=== PATIENT | male | born 1935 | race Caucasian/White ===

== ENCOUNTER 2019-11-15 06:46 | Day surgery (SDC) | payer MEDICARE, OTHER ==
[~2019-11-15 06:46] MED LIST: Lactated Ringers 1,000 ML IV SCH; Sodium Chloride 0.9% 10 ML Syringe FLUSH PRN
[2019-11-15] MEDS ORDERED: Propofol 200 MG/20 ML SDV IV ONE (06:47)
[2019-11-15] MEDS ORDERED: Lidocaine 2% 5 ML SDV INJECT ONE (06:47)
--- NOTE | 2019-11-15 09:28 | PCM.OPNOTE ---
- General Post-Op/Procedure Note Date of Surgery/Procedure: 11/15/19 Operative Procedure(s): EGD with biopsy. Colonoscopy with Polypectomy Findings: Diffuse Gastritis with hyperemia of gastric mucosa but without active bleeding White patches on esophageal mucosa - possible sarah esophagitis Moderate sigmoid diverticulosis without active bleeding Sigmoid colon polyp Pre Op Diagnosis: Anemia Post-Op Diagnosis: Gastritis. Colon Polyp. Sigmoid Diverticulosis Anesthesia Technique: [facility] – [place] Primary Surgeon: Ilir Lovett Pathology: Biopsies of Gastric Antrum and esophagus Sigmoid colon polyp EBL in mLs: 3 Complications: None Condition: Good
--- NOTE | 2019-11-15 13:59 | HP ---
ADMISSION DATE: 11/15/2019 HISTORY OF PRESENT ILLNESS: This 84-year-old male was recently identified to have worsening of his chronic anemia with a hemoglobin of less than 9. He also states that he has occasional hematochezia with some blood on the toilet paper. With these findings, the patient was referred for upper and lower endoscopy. He denies symptoms of heartburn or dysphagia. He states that his bowel function has been satisfactory, although he has noticed some episodes recently of increased gas pressure in the lower abdomen. PAST MEDICAL HISTORY: Shows previous surgeries to include cholecystectomy and hernia repair. He also has diagnoses of diabetes, hypertension and takes warfarin. His INR this morning is satisfactory to proceed with surgery. FAMILY HISTORY: Unchanged. SOCIAL HISTORY: Unchanged. SYSTEM REVIEW: The patient says that he has generally been feeling well recently. His appetite has been satisfactory. He has not been experiencing any chest pain, and he has had no respiratory symptoms. PHYSICAL EXAMINATION: VITAL SIGNS: Temperature is 98.5, pulse 79, blood pressure is 153/65. GENERAL: The patient is alert adult elderly male. He is in no acute distress. HEENT: Head is normocephalic. No scleral icterus. HEART: Regular. LUNGS: Clear. ABDOMEN: Soft without distention or mass. EXTREMITIES: Show no edema. IMPRESSION: Anemia. PLAN: EGD and colonoscopy. INFORMED CONSENT: I have discussed the proposed endoscopic procedures with the patient, reviewed with him indications, options, and risks such as but not limited to bleeding and GI injury. He appears to understand and agrees to proceed. /[id number] PAOLA/MERRILL
--- NOTE | 2019-11-15 17:24 | OR ---
DATE OF OPERATION: 11/15/2019 SURGEON: Ilir Lovett MD PREOPERATIVE DIAGNOSES: 1. Anemia. 2. Positive fecal immunochemical test. POSTOPERATIVE DIAGNOSES: 1. Gastritis. 2. Sigmoid colon polyp. 3. Sigmoid diverticulosis. OPERATIONS PERFORMED: 1. Esophagogastroduodenoscopy with biopsy. 2. Colonoscopy with polypectomy. INDICATIONS FOR SURGERY: This 84-year-old male was found to have increasing anemia as well as a positive FIT test. He was referred for diagnostic upper and lower endoscopy. FINDINGS: On upper endoscopy, the patient was noted to have diffuse gastritis with hyperemia of the gastric mucosa. No active bleeding was seen at this time, and no ulcerations were noted. The duodenum and stomach otherwise appeared normal. The patient has multiple white patches scattered on the mucosa throughout the mid and lower esophagus. These are of concern for possible Emilie esophagitis. No other abnormalities were noted on upper endoscopy. On colonoscopy, the patient had a single 8 mm sessile polyp in the sigmoid colon 20 cm from the anal verge. There is also a moderate degree of diverticulosis, but this does not appear acutely inflamed and there is no evidence of bleeding from this region at this time. The remainder of the colon appears normal. Small internal hemorrhoids are noted as well. PROCEDURE IN DETAIL: The patient was taken to the procedure room. He was given intravenous sedation, and with him in the left lateral decubitus position, the Olympus gastroscope was advanced into the mouth and then carefully under direct visualization it was advanced down into the esophagus, stomach, and into the duodenum where examination to the third portion was performed. After carefully examining the duodenum, the scope was withdrawn back into the stomach. Gastritis was seen and random biopsies of the gastric antrum were taken to rule out H. pylori. Retroflexed examination of the fundus was carried out, and the GE junction was carefully examined and the esophagus was examined as the scope was withdrawn. Biopsies of the lining of the lower esophagus were taken to rule out Emilie esophagitis. After the upper endoscopy was completed, the scope was removed and attention was turned to colonoscopy. Digital rectal exam was performed showing no rectal masses. The Olympus colonoscope was inserted into the rectum. Retroflexed examination of the rectal canal was performed. The scope was then carefully advanced under direct visualization through the entire length of the colon until the cecum was reached. Cecal acquisition was confirmed by noting the normal internal cecal anatomy including the appendiceal orifice and ileocecal valve. The light was also noted to transilluminate the abdominal wall in the right lower quadrant. After examining the cecum, the scope was slowly withdrawn sequentially re-examining the colonic segments. In the sigmoid colon, the above-described polyp was identified. This was removed with a cautery snare and retrieved. Careful examination showed no sign of bleeding or any other complication, and after the exam had been completed, the scope was removed and the patient was taken from the procedure room in satisfactory condition. ESTIMATED BLOOD LOSS: 3 mL. COMPLICATIONS: None. PROGNOSIS: Good. /[id number] PAOLA/MODL
== END 2019-11-15 10:25 | disposition home or self-care (01) ==
LOC: FB.SDS 06:46
PROVIDERS: ATTEND Surgery
DX: K29.50 Unspecified chronic gastritis without bleeding (principal); K21.0 Gastro-esophageal reflux disease with esophagitis; D12.5 Benign neoplasm of sigmoid colon; K57.30 Diverticulosis of large intestine without perforation or abscess without bleeding; B96.81 Helicobacter pylori [H. pylori] as the cause of diseases classified elsewhere; K64.8 Other hemorrhoids; D63.1 Anemia in chronic kidney disease; I13.0 Hypertensive heart and chronic kidney disease with heart failure and stage 1 through stage 4 chronic kidney disease, or unspecified chronic kidney disease; I50.9 Heart failure, unspecified; N18.4 Chronic kidney disease, stage 4 (severe); E11.22 Type 2 diabetes mellitus with diabetic chronic kidney disease; E11.51 Type 2 diabetes mellitus with diabetic peripheral angiopathy without gangrene; Z20.828 Contact with and (suspected) exposure to other viral communicable diseases; Z90.49 Acquired absence of other specified parts of digestive tract; Z79.01 Long term (current) use of anticoagulants; Z79.899 Other long term (current) drug therapy
CPT/HCPCS: 00813; 36415; 43239; 45385; 82962; 85610; 88305; 88312; 88342; J2001; J2704; J7120; U0002

== ENCOUNTER 2020-09-25 19:11 | Emergency (ER) | payer MEDICARE, OTHER ==
[2020-09-25] MEDS ORDERED: Sodium Chloride 0.9% 10 ML Syringe FLUSH PRN (19:13)
[2020-09-25] MEDS ORDERED: Metolazone 2.5 MG Tab PO STA (19:50)
[2020-09-25] MEDS ORDERED: Furosemide 40 MG/4 ML VIAL IVPUSH ONE (19:50)
--- NOTE | 2020-09-25 20:19 | EDM.PDOC ---
ED HPI GENERAL MEDICAL PROBLEM - General Chief Complaint: Cardiovascular Problem Stated Complaint: SOB Time Seen by Provider: 09/25/20 19:25 Source of Information: Reports: Patient, Family History Limitations: Reports: No Limitations - History of Present Illness INITIAL COMMENTS - FREE TEXT/NARRATIVE: Patient is an 85 YO WM who presented to the ED because of 1 month history of increasing dyspnea, cough, and lower extremity edema. He attributed it to the Covid vaccine that he got 1 month ago. He also noticed a gradually increasing abdominal size and bloating although he denies having any abdominal pain, nausea, vomiting. There is no fever, chills, and his cough is mostly dry. - Related Data Allergies Allergy/AdvReac Type Severity Reaction Status Date / Time pollen extracts Allergy Other Verified 09/25/20 19:22 Home Meds: Home Meds Aspirin [Low Dose Aspirin EC] 81 mg PO DAILY 11/14/19 [History] Cholecalciferol (Vitamin D3) [Vitamin D3] 2,000 unit PO DAILY 11/14/19 [History] Ferrous Sulfate 325 mg PO BID 11/14/19 [History] Metoprolol Succinate [Toprol XL 50mg] 50 mg PO DAILY 11/14/19 [History] Warfarin [Coumadin] 5 mg PO DAILY 11/14/19 [History] Warfarin [Coumadin] 7.5 mg PO MOWEFR 11/14/19 [History] amLODIPine [Norvasc] 2.5 mg PO DAILY 11/14/19 [History] atorvaSTATin [Lipitor] 40 mg PO DAILY 11/14/19 [History] glipiZIDE [Glucotrol XL] 5 mg PO DAILY 11/14/19 [History] hydrALAZINE [Apresoline] 50 mg PO Q12HR 11/14/19 [History] Past Medical History HEENT History: Reports: Other (See Below) Other HEENT History: states that he has problem in the blood vessel of his left eye. Cardiovascular History: Reports: CAD, High Cholesterol, Hypertension Genitourinary History: Reports: Prostate Disorder, Renal Calculus, Renal Disease Musculoskeletal History: Reports: Arthritis, Osteoarthritis Neurological History: Reports: Other (See Below) Other Neuro History: DDD (DEGENERATIVE DISC DISEASE) Hematologic History: Reports: Anemia, Anticoagulation Therapy - Past Surgical History Cardiovascular Surgical History: Reports: Coronary Artery Bypass, Other (See Below) Other Cardiovascular Surgeries/Procedures: VEIN GRAFTING GI Surgical History: Reports: Cholecystectomy, Hernia, Inguinal Social & Family History - Family History Family Medical History: No Pertinent Family History - Tobacco Use Tobacco Use Status *Q: Never Tobacco User - Caffeine Use Caffeine Use: Reports: Coffee, Soda - Recreational Drug Use Recreational Drug Use: No ED ROS GENERAL - Review of Systems Review Of Systems: See Below Constitutional: Reports: Fatigue HEENT: Reports: No Symptoms Respiratory: Reports: Shortness of Breath, Cough Cardiovascular: Reports: No Symptoms, Edema Endocrine: Reports: No Symptoms GI/Abdominal: Reports: Distension : Reports: No Symptoms Musculoskeletal: Reports: No Symptoms Skin: Reports: No Symptoms Neurological: Reports: No Symptoms Psychiatric: Reports: No Symptoms ED EXAM, GENERAL - Physical Exam Exam: See Below Exam Limited By: No Limitations General Appearance: Alert, No Apparent Distress Eye Exam: Bilateral Eye: PERRL Ears: Normal External Exam, Normal Canal Nose: Normal Inspection, Normal Mucosa, No Blood Throat/Mouth: Normal Inspection, Normal Lips, Normal Teeth Head: Atraumatic, Normocephalic Neck: Normal Inspection, Supple, Non-Tender, Full Range of Motion Respiratory/Chest: No Respiratory Distress, Lungs Clear, Normal Breath Sounds Cardiovascular: Normal Peripheral Pulses, Regular Rate, Rhythm, No Edema, No Gallop GI/Abdominal: Normal Bowel Sounds, Soft, Non-Tender, No Organomegaly Back Exam: Normal Inspection, Full Range of Motion Extremities: Normal Inspection, Normal Range of Motion, Non-Tender, No Pedal Edema, Pedal Edema, Other Neurological: Alert, Oriented, CN II-XII Intact, Normal Cognition, Normal Gait Psychiatric: Normal Affect Skin Exam: Warm #1 Interpretation EKG Date: 09/25/20 Time: 19:13 Rhythm: NSR State Road: Normal P-Wave: Present QRS: LBBB ST-T: Normal QT: Prolonged Comparison: NA - No Prior EKG (NSR LBBB) Course - Vital Signs Text/Narrative:: Lab/EKG/CXR result was discussed with patient and his son Lasix 40 mg IV x1 Zaroxolyn 2.5 mg po x1 Vit K 5 mg IM Code Status: Full Code Case discussed with Dr Huber Last Recorded V/S: Last Vital Signs Temp 37.1 C 09/25/20 21:15 Pulse 77 09/25/20 21:15 Resp 22 H 09/25/20 21:15 BP 146/73 H 09/25/20 21:15 Pulse Ox 96 09/25/20 21:15 - Orders/Labs/Meds Orders: Active Orders 24 hr Category Date Time Status Abdomen Pelvis wo Cont [CT] Stat Exams 09/25/20 20:08 Taken Chest 1V Frontal [CR] Stat Exams 09/25/20 19:13 Taken Saline Lock Insert [OM.PC] Routine Oth 09/25/20 19:13 Ordered EKG 12 Lead [EK] Routine Ther 09/25/20 19:13 Ordered Labs: Laboratory Tests 09/25/20 09/25/20 09/25/20 Range/Units 19:35 19:35 19:35 WBC 6.0 (3.2-10.1) x10-3/uL RBC 2.67 L (3.90-5.90) x10(6)uL Hgb 8.2 L (12.9-17.7) g/dL Hct 25.5 L (38.3-50.1) % MCV 95.3 (80.8-98.7) fL MCH 30.5 (27.0-33.3) pg MCHC 32.0 (28.7-35.3) g/dL RDW 14.5 (12.4-15.0) % Plt Count 218 (117-477) x10(3)uL MPV 7.1 (6.7-11.0) fL Neut % (Auto) 74.2 H (40.3-71.8) % Lymph % (Auto) 8.0 L (15.8-45.3) % Butler % (Auto) 11.8 (5.5-15.2) % Eos % (Auto) 4.6 (0.1-6.8) % Baso % (Auto) 1.4 (0.3-3.8) % Neut # (Auto) 4.4 (1.7-6.9) x10-3/uL Lymph # (Auto) 0.5 (0.5-4.5) x10-3/uL Butler # (Auto) 0.7 (0.0-1.2) x10-3/uL Eos # (Auto) 0.3 (0.0-0.6) x10-3/uL Baso # (Auto) 0.1 (0.0-0.3) x10-3/uL PT 48.2 H* (9.0-11.1) sec INR 4.95 H* (1.00-1.24) Sodium 140 (135-145) mmol/L Potassium 4.4 (3.5-5.3) mmol/L Chloride 105 (100-110) mmol/L Carbon Dioxide 22 (21-32) mmol/L BUN 35 H (7-18) mg/dL Creatinine 2.3 H* (0.70-1.30) mg/dL Est Cr Clr Drug Dosing 26.31 mL/min Estimated GFR (MDRD) 27 L (>60) BUN/Creatinine Ratio 15.2 (9-20) Glucose 118 H (80-116) mg/dL Calcium 8.0 L (8.6-10.2) mg/dL Total Bilirubin 0.4 (0.1-1.3) mg/dL AST 22 (5-25) IU/L ALT 24 (12-36) U/L Alkaline Phosphatase 152 H (56-112) IU/L Troponin I (4.0-60.3) pg/mL NT-Pro-B Natriuret Pep (<=450) pg/mL Total Protein 6.3 (6.0-8.0) g/dL Albumin 2.9 L (3.2-4.6) g/dL Globulin 3.4 g/dL Albumin/Globulin Ratio 0.9 SARS-CoV-2 RNA (NATHANIEL) (NEGATIVE) 09/25/20 09/25/20 Range/Units 19:35 20:00 WBC (3.2-10.1) x10-3/uL RBC (3.90-5.90) x10(6)uL Hgb (12.9-17.7) g/dL Hct (38.3-50.1) % MCV (80.8-98.7) fL MCH (27.0-33.3) pg MCHC (28.7-35.3) g/dL RDW (12.4-15.0) % Plt Count (117-477) x10(3)uL MPV (6.7-11.0) fL Neut % (Auto) (40.3-71.8) % Lymph % (Auto) (15.8-45.3) % Butler % (Auto) (5.5-15.2) % Eos % (Auto) (0.1-6.8) % Baso % (Auto) (0.3-3.8) % Neut # (Auto) (1.7-6.9) x10-3/uL Lymph # (Auto) (0.5-4.5) x10-3/uL Butler # (Auto) (0.0-1.2) x10-3/uL Eos # (Auto) (0.0-0.6) x10-3/uL Baso # (Auto) (0.0-0.3) x10-3/uL PT (9.0-11.1) sec INR (1.00-1.24) Sodium (135-145) mmol/L Potassium (3.5-5.3) mmol/L Chloride (100-110) mmol/L Carbon Dioxide (21-32) mmol/L BUN (7-18) mg/dL Creatinine (0.70-1.30) mg/dL Est Cr Clr Drug Dosing mL/min Estimated GFR (MDRD) (>60) BUN/Creatinine Ratio (9-20) Glucose (80-116) mg/dL Calcium (8.6-10.2) mg/dL Total Bilirubin (0.1-1.3) mg/dL AST (5-25) IU/L ALT (12-36) U/L Alkaline Phosphatase (56-112) IU/L Troponin I 10.5 (4.0-60.3) pg/mL NT-Pro-B Natriuret Pep 3776 H* (<=450) pg/mL Total Protein (6.0-8.0) g/dL Albumin (3.2-4.6) g/dL Globulin g/dL Albumin/Globulin Ratio SARS-CoV-2 RNA (NATHANIEL) Negative (NEGATIVE) Meds: Medications Discontinued Medications Generic Name Dose Route Start Last Admin Trade Name Freq PRN Reason Stop Dose Admin Furosemide 40 mg 09/25/20 19:50 09/25/20 19:56 Furosemide 40 Mg/4 Ml Vial IVPUSH 09/25/20 19:51 40 mg NOW ONE Administration Metolazone 2.5 mg 09/25/20 19:50 09/25/20 19:57 Metolazone 2.5 Mg Tab PO 09/25/20 19:51 2.5 mg NOW STA Administration Phytonadione 5 mg 09/25/20 20:26 09/25/20 20:54 Phytonadione 10 Mg/1 Ml Amp IM 09/25/20 20:56 5 mg NOW ONE Administration Sodium Chloride 10 ml 09/25/20 19:13 09/25/20 19:58 Sodium Chloride 0.9% 10 Ml Syringe FLUSH 10 ml ASDIRECTED PRN Administration Keep Vein Open Departure - Departure Time of Disposition: 21:30 Disposition: DC/Tfer to [facility] 02 Reason for Transfer *Q: Other (CHF) Condition: Good Clinical Impression: New onset of congestive heart failure, CKD (chronic kidney disease), Anemia, Supratherapeutic INR, Ascites Referrals: Parish Potts MD [Primary Care Provider] - Forms: ED Department Discharge Sepsis Event Note (ED) - Evaluation Sepsis Screening Result: No Definite Risk - Focused Exam Vital Signs: Vital Signs Temp Pulse Resp BP Pulse Ox 09/25/20 21:15 37.1 C 77 22 H 146/73 H 96 09/25/20 20:50 79 23 H 145/74 H 96 09/25/20 20:15 74 23 H 142/64 H 97 09/25/20 19:59 37.4 C 09/25/20 19:15 37.1 C 101 H 23 H 161/74 H 96 - My Orders Last 24 Hours: My Active Orders 09/25/20 19:13 Chest 1V Frontal [CR] Stat Saline Lock Insert [OM.PC] Routine EKG 12 Lead [EK] Routine 09/25/20 20:08 Abdomen Pelvis wo Cont [CT] Stat - Assessment/Plan Last 24 Hours: My Active Orders 09/25/20 19:13 Chest 1V Frontal [CR] Stat Saline Lock Insert [OM.PC] Routine EKG 12 Lead [EK] Routine 09/25/20 20:08 Abdomen Pelvis wo Cont [CT] Stat
--- NOTE | 2020-09-26 17:15 | CR ---
INDICATION: Cough, dyspnea. CHEST ONE VIEW: An AP upright portable view of the chest was obtained 09/25/20 - no comparisons. There appears to be some infiltration that has somewhat rounded appearance in the upper middle lung field on the right. There also appears to be some possible infiltration and linear density at the left lower lobe and minimally at the right lung base. Findings may be on the basis of pneumonia, but should be followed to clearing in this patient to exclude neoplasia. Ventricular recorder is noted overlying the left lower lung field. Post median sternotomy changes noted. The heart appears to be within normal limits in size. The aorta is somewhat tortuous. Diaphragm leaves are slightly flattened with mild hyperaeration raising question of COPD. IMPRESSION: 1. Possible areas pneumonia followup to clearing - correlate clinically. 2. Post median sternotomy with recorder noted. 3. Possible COPD - correlate clinically. MTDD
== END 2020-09-25 21:36 ==
LOC: FB.ED 19:11
DX: I13.0 Hypertensive heart and chronic kidney disease with heart failure and stage 1 through stage 4 chronic kidney disease, or unspecified chronic kidney disease (principal); I50.9 Heart failure, unspecified; N18.9 Chronic kidney disease, unspecified; D63.1 Anemia in chronic kidney disease; R79.1 Abnormal coagulation profile; R18.8 Other ascites; I25.10 Atherosclerotic heart disease of native coronary artery without angina pectoris; E78.00 Pure hypercholesterolemia, unspecified; Z20.828 Contact with and (suspected) exposure to other viral communicable diseases; Z91.09 Other allergy status, other than to drugs and biological substances; Z79.82 Long term (current) use of aspirin; Z79.01 Long term (current) use of anticoagulants; Z79.899 Other long term (current) drug therapy
CPT/HCPCS: 36415; 71045; 74176; 80053; 83880; 84484; 85025; 85610; 93005; 96372; 96374; 99285; A9270; J1940; J3430; U0002

== ENCOUNTER 2020-11-18 09:16 | Emergency (ER) | payer MEDICARE, OTHER ==
--- NOTE | 2020-11-18 09:29 | EDM.PDOC ---
ED HPI GENERAL MEDICAL PROBLEM - General Stated Complaint: lab Time Seen by Provider: 11/18/20 09:27 Source of Information: Reports: Patient History Limitations: Reports: No Limitations - History of Present Illness INITIAL COMMENTS - FREE TEXT/NARRATIVE: 85-year-old male with history of chronic kidney disease, congestive heart failure, anemia, atrial fibrillation with chronic anticoagulation with Coumadin and with anasarca including ascites who presents to the emergency department via private vehicle by his son after being directed "to come to the ER for evaluation and blood transfusion" by the clinic provider at Nephrology clinic at [facility]. Apparently the patient's hemoglobin was 6.8. The patient also had an INR of 3.1 and his creatinine was more elevated. The patient reports dyspnea on exertion but no shortness of breath at rest and he "feels okay". He is denying any pain. He rates his pain as a 0/10. He has noticed no blood in his stools. He has had upper cough but the cough is chronic and nonproductive. It seems to be less so than it has been in the past. He has had no fevers or chills. He has been eating and drinking per his norm. He does have ascites and has had paracentesis in the past and apparently is scheduled for a paracentesis on 11/17/2020. His abdominal girth is appearing to get worse. There are no other associated signs or symptoms. There are no other modifying factors. 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.) - Related Data Allergies Allergy/AdvReac Type Severity Reaction Status Date / Time pollen extracts Allergy Other Verified 09/25/20 19:22 Home Meds: Home Meds Aspirin [Low Dose Aspirin EC] 81 mg PO DAILY 11/14/19 [History] Cholecalciferol (Vitamin D3) [Vitamin D3] 2,000 unit PO DAILY 11/14/19 [History] Ferrous Sulfate 325 mg PO TID 11/14/19 [History] Metoprolol Succinate [Toprol XL 50mg] 50 mg PO DAILY 11/14/19 [History] Warfarin [Coumadin] 2.5 mg PO MOWEFR 11/14/19 [History] Warfarin [Coumadin] 5 mg PO DAILY 11/14/19 [History] amLODIPine [Norvasc] 2.5 mg PO DAILY 11/14/19 [History] atorvaSTATin [Lipitor] 40 mg PO DAILY 11/14/19 [History] glipiZIDE [Glucotrol XL] 5 mg PO DAILY 11/14/19 [History] hydrALAZINE [Apresoline] 50 mg PO Q12HR 11/14/19 [History] Benzonatate [Tessalon Perle] 100 mg PO TID PRN 11/18/20 [History] Folic Acid 1 mg PO DAILY 11/18/20 [History] Multivitamin PO DAILY 11/18/20 [History] Torsemide [Demadex] 20 mg PO DAILY 11/18/20 [History] prednisoLONE acetate [Pred Forte 1% Ophth Susp] 1 drop EYELF 11/18/20 [History] Past Medical History HEENT History: Reports: Other (See Below) Other HEENT History: states that he has problem in the blood vessel of his left eye. Cardiovascular History: Reports: Afib, CAD, High Cholesterol, Hypertension Genitourinary History: Reports: Prostate Disorder, Renal Calculus, Renal Disease Musculoskeletal History: Reports: Arthritis, Osteoarthritis Neurological History: Reports: Other (See Below) Other Neuro History: DDD (DEGENERATIVE DISC DISEASE) Endocrine/Metabolic History: Reports: Diabetes, Type II Hematologic History: Reports: Anemia, Anticoagulation Therapy (On Coumadin) - Past Surgical History Cardiovascular Surgical History: Reports: Coronary Artery Bypass, Other (See Below) Other Cardiovascular Surgeries/Procedures: VEIN GRAFTING GI Surgical History: Reports: Cholecystectomy, Colonoscopy, EGD, Hernia, Inguinal Social & Family History - Tobacco Use Tobacco Use Status *Q: Unknown Ever Used Tobacco (Nonsmoker.) - Caffeine Use Caffeine Use: Reports: Coffee, Soda - Alcohol Use Alcohol Use History: No - Living Situation & Occupation Occupation: Retired ED ROS GENERAL - Review of Systems Review Of Systems: See Below Constitutional: Reports: Malaise, Weakness, Fatigue HEENT: Reports: No Symptoms Respiratory: Reports: Cough Cardiovascular: Reports: Dyspnea on Exertion GI/Abdominal: Reports: Distension (With ascites) : Reports: Other (He reports his urine output is less than usual.) Musculoskeletal: Reports: Other (Anasarca.) Skin: Reports: Pallor Neurological: Reports: Weakness (Generalized) Hematologic/Lymphatic: Reports: Easy Bruising (Clinical anticoagulated on Coumadin) Immunologic: Reports: No Symptoms ED EXAM, GENERAL - Physical Exam Exam: See Below Exam Limited By: No Limitations General Appearance: Alert, WD/WN, No Apparent Distress Eye Exam: Bilateral Eye: EOMI, Normal Inspection (Sclera are anicteric) Ears: Normal External Exam, Hearing Grossly Normal Ear Exam: Bilateral Ear: Auricle Normal Nose: Normal Inspection, Normal Mucosa, No Blood Throat/Mouth: Normal Lips, Normal Voice, No Airway Compromise Head: Atraumatic, Normocephalic Neck: Normal Inspection, Supple, Non-Tender, Full Range of Motion Respiratory/Chest: No Respiratory Distress, No Accessory Muscle Use, Crackles, Rales (Bilaterally) Cardiovascular: Normal Peripheral Pulses, Gallop/S3, Irregularly Irregular Peripheral Pulses: 2+: Radial (L), Radial (R), Dorsalis Pedis (L), Dorsalis Pedis (R) GI/Abdominal: Normal Bowel Sounds, Non-Tender, No Mass, Distended, Other (Ascites is present.) Back Exam: Normal Inspection, Full Range of Motion Extremities: Normal Inspection, Normal Range of Motion, Pedal Edema (Marked 2+ edema in both lower extremities, ankles and feet.) Neurological: Alert, Oriented, CN II-XII Intact, Normal Cognition, No Motor/Sensory Deficits Skin Exam: Warm, Dry, Intact, Pallor #1 Interpretation EKG Date: 11/18/20 Time: 10:21 Rhythm: NSR Rate (Beats/Min): 66 Media: LAD-Left Media Deviation (Mild) P-Wave: Present QRS: LBBB ST-T: Normal QT: Prolonged (Prolonged QTc.) Comparison: No Change (No change from an EKG performed on 09/25/2020.) Course - Vital Signs Last Recorded V/S: Last Vital Signs Temp 36.7 C 11/18/20 09:16 Pulse 72 11/18/20 09:16 Resp 18 11/18/20 09:16 BP 138/67 11/18/20 09:16 Pulse Ox 97 11/18/20 09:16 - Orders/Labs/Meds Orders: Active Orders 24 hr Category Date Time Status EKG Documentation Completion [RC] ASDIRECTED Care 11/18/20 09:47 Active Sodium Chloride 0.9% [Saline Flush] Med 11/18/20 09:46 Active 10 ml FLUSH ASDIRECTED PRN Peripheral IV Insertion Adult [OM.PC] Routine Oth 11/18/20 09:46 Ordered EKG 12 Lead [EK] Routine Ther 11/18/20 09:46 Ordered Medication Orders Sodium Chloride (Sodium Chloride 0.9% 10 Ml Syringe) 10 ml FLUSH ASDIRECTED PRN PRN Reason: Keep Vein Open Labs: Laboratory Tests 11/18/20 11/18/20 11/18/20 Range/Units 09:55 09:55 09:55 WBC 4.7 (3.2-10.1) x10-3/uL RBC 2.19 L (3.90-5.90) x10(6)uL Hgb 6.8 L* (12.9-17.7) g/dL Hct 21.3 L* (38.3-50.1) % MCV 97.1 (80.8-98.7) fL MCH 31.0 (27.0-33.3) pg MCHC 32.0 (28.7-35.3) g/dL RDW 16.8 H (12.4-15.0) % Plt Count 198 (117-477) x10(3)uL MPV 6.9 (6.7-11.0) fL Neut % (Auto) 76.0 H (40.3-71.8) % Lymph % (Auto) 6.1 L (15.8-45.3) % [place] % (Auto) 13.5 (5.5-15.2) % Eos % (Auto) 3.4 (0.1-6.8) % Baso % (Auto) 1.0 (0.3-3.8) % Neut # (Auto) 3.6 (1.7-6.9) x10-3/uL Lymph # (Auto) 0.3 L (0.5-4.5) x10-3/uL [place] # (Auto) 0.6 (0.0-1.2) x10-3/uL Eos # (Auto) 0.2 (0.0-0.6) x10-3/uL Baso # (Auto) 0.0 (0.0-0.3) x10-3/uL PT 26.1 H (9.0-11.1) sec INR 2.57 H (1.00-1.24) Sodium 141 (135-145) mmol/L Potassium 3.6 (3.5-5.3) mmol/L Chloride 105 (100-110) mmol/L Carbon Dioxide 24 (21-32) mmol/L BUN 60 H D (7-18) mg/dL Creatinine 3.1 H* (0.70-1.30) mg/dL Est Cr Clr Drug Dosing 19.52 mL/min Estimated GFR (MDRD) 19 L (>60) BUN/Creatinine Ratio 19.4 (9-20) Glucose 165 H (80-116) mg/dL Calcium 7.5 L (8.6-10.2) mg/dL Magnesium 2.0 (1.8-2.5) mg/dL Total Bilirubin 0.3 (0.1-1.3) mg/dL AST 18 D (5-25) IU/L ALT 21 D (12-36) U/L Alkaline Phosphatase 123 H (56-112) IU/L Troponin I (4.0-60.3) pg/mL NT-Pro-B Natriuret Pep (<=450) pg/mL Total Protein 5.8 L (6.0-8.0) g/dL Albumin 2.5 L (3.2-4.6) g/dL Globulin 3.3 g/dL Albumin/Globulin Ratio 0.8 SARS-CoV-2 RNA (NATHANIEL) (NEGATIVE) 11/18/20 11/18/20 Range/Units 09:55 11:49 WBC (3.2-10.1) x10-3/uL RBC (3.90-5.90) x10(6)uL Hgb (12.9-17.7) g/dL Hct (38.3-50.1) % MCV (80.8-98.7) fL MCH (27.0-33.3) pg MCHC (28.7-35.3) g/dL RDW (12.4-15.0) % Plt Count (117-477) x10(3)uL MPV (6.7-11.0) fL Neut % (Auto) (40.3-71.8) % Lymph % (Auto) (15.8-45.3) % [place] % (Auto) (5.5-15.2) % Eos % (Auto) (0.1-6.8) % Baso % (Auto) (0.3-3.8) % Neut # (Auto) (1.7-6.9) x10-3/uL Lymph # (Auto) (0.5-4.5) x10-3/uL [place] # (Auto) (0.0-1.2) x10-3/uL Eos # (Auto) (0.0-0.6) x10-3/uL Baso # (Auto) (0.0-0.3) x10-3/uL PT (9.0-11.1) sec INR (1.00-1.24) Sodium (135-145) mmol/L Potassium (3.5-5.3) mmol/L Chloride (100-110) mmol/L Carbon Dioxide (21-32) mmol/L BUN (7-18) mg/dL Creatinine (0.70-1.30) mg/dL Est Cr Clr Drug Dosing mL/min Estimated GFR (MDRD) (>60) BUN/Creatinine Ratio (9-20) Glucose (80-116) mg/dL Calcium (8.6-10.2) mg/dL Magnesium (1.8-2.5) mg/dL Total Bilirubin (0.1-1.3) mg/dL AST (5-25) IU/L ALT (12-36) U/L Alkaline Phosphatase (56-112) IU/L Troponin I 12.8 (4.0-60.3) pg/mL NT-Pro-B Natriuret Pep 3019 H* (<=450) pg/mL Total Protein (6.0-8.0) g/dL Albumin (3.2-4.6) g/dL Globulin g/dL Albumin/Globulin Ratio SARS-CoV-2 RNA (NATHANIEL) Negative (NEGATIVE) Meds: Medications Generic Name Dose Route Start Last Admin Trade Name Freq PRN Reason Stop Dose Admin Sodium Chloride 10 ml 11/18/20 09:46 Sodium Chloride 0.9% 10 Ml Syringe FLUSH ASDIRECTED PRN Keep Vein Open - Radiology Interpretation Free Text/Narrative:: Chest x-ray shows enlarging density in the right middle lung that could be a mass. It could also be a pneumonia. There was also minimal infiltrate in the left lower lobe. I was per Dr. Lazo, radiologist. - Re-Assessments/Exams Free Text/Narrative Re-Assessment/Exam: 11/18/20 10:50: Patient's hemoglobin is 6.8. His creatinine is 3.1. His INR is 2.7. His serum electrolytes are normal. His proBNP is elevated to 6000. His chest x-ray does have concerning findings in the right middle lobe that could be a mass that is enlarging over the past 2 months. This was also associated with some left lower lobe infiltrate as well. His EKG today was unchanged from an EKG performed on 09/25/2020 The patient will need transfusion for his severe anemia. In addition, he will need to have diuresis associated with this transfusion he will need paracentesis coming up shortly as well. I discussed patient's case with Dr. Varma, hospitalist at [facility], and he again (and I(feel the lacey ent will need to procedures and specially cares which are not available as a present healthcare. He feels that the patient would be best transferred for this procedure. I will call and discuss the patient's case with the doctors at [facility] in [place]. 11/18/20 11:25: I discussed patient's case with Dr. Costa, intake physician at [facility] in [place], and he has agreed to accept the patient transfer. I think the patient is stable for transfer via private vehicle at this point. I discussed all this with the patient and with his son. They're in agreement with this plan. The son will transport him to [facility] via private vehicle for direct admission. They are asking that we do a rapid Covid test prior to sending the patient. Departure - Departure Time of Disposition: 12:47 Disposition: DC/Tfer to Acute Hospital 02 Condition: Fair Clinical Impression: Severe anemia, Anasarca, Chronic anticoagulation Ascites Qualifiers: Ascites type: other type Qualified Code(s): R18.8 - Other ascites - Discharge Information Referrals: Marv Chao MD [Primary Care Provider] - Additional Instructions: Go directly to [facility] for direct admission. Sepsis Event Note (ED) - Focused Exam Vital Signs: Vital Signs Temp Pulse Resp BP Pulse Ox 11/18/20 09:16 36.7 C 72 18 138/67 97 - My Orders Last 24 Hours: My Active Orders 11/18/20 09:46 Sodium Chloride 0.9% [Saline Flush] 10 ml FLUSH ASDIRECTED PRN Peripheral IV Insertion Adult [OM.PC] Routine EKG 12 Lead [EK] Routine 11/18/20 09:47 EKG Documentation Completion [RC] ASDIRECTED - Assessment/Plan Last 24 Hours: My Active Orders 11/18/20 09:46 Sodium Chloride 0.9% [Saline Flush] 10 ml FLUSH ASDIRECTED PRN Peripheral IV Insertion Adult [OM.PC] Routine EKG 12 Lead [EK] Routine 11/18/20 09:47 EKG Documentation Completion [RC] ASDIRECTED
[2020-11-18] MEDS ORDERED: Sodium Chloride 0.9% 10 ML Syringe FLUSH PRN (09:46)
--- NOTE | 2020-11-18 10:29 | CR ---
INDICATION: Cough. CHEST ONE VIEW: An AP upright portable view of the chest was obtained 11/18/20 and compared with 09/25/20. There is an enlarging area of infiltrate in the right midlung field which was present previously but is significantly more prominent than on the previous study. The possibility of neoplasia would be a consideration with this appearance. CT of the chest without and with contrast is recommended for confirmation. There appear to be some heavy markings slightly increased compared with the previous study at the left lung base also which could represent an area of pneumonia. There is some blunting of the left costophrenic angle which may represent a minimal pleural effusion. No free air os noted under the hemidiaphragm leaves. The heart did not appear grossly enlarged, but is emphasized by the rotation of the chest to the right and poor inspiration as well as AP positioning. IMPRESSION: 1. What could be an enlarging mass is noted in the right midlung field. Depending upon clinical correlation, followup to clearing if felt to be pneumonia, and possibility CT without and with IV contrast may be warranted. 2. ASHD with post median sternotomy change. 3. Possible minimal pneumonia and pleuritis at the left lung base. Report was called to Dr. Diaz at 1014 hours 11/19/20. [facility]
== END 2020-11-18 12:58 ==
LOC: FB.ED 09:16
DX: D64.9 Anemia, unspecified (principal); R60.1 Generalized edema; I48.91 Unspecified atrial fibrillation; I25.10 Atherosclerotic heart disease of native coronary artery without angina pectoris; E78.00 Pure hypercholesterolemia, unspecified; I10 Essential (primary) hypertension; M19.90 Unspecified osteoarthritis, unspecified site; E11.9 Type 2 diabetes mellitus without complications; Z79.82 Long term (current) use of aspirin; Z79.84 Long term (current) use of oral hypoglycemic drugs; Z79.899 Other long term (current) drug therapy; Z79.01 Long term (current) use of anticoagulants; Z20.822 Contact with and (suspected) exposure to COVID-19
CPT/HCPCS: 36415; 71045; 80053; 83735; 83880; 84484; 85025; 85610; 93005; 99285; U0002